=== PATIENT | female | born 1970 | race Caucasian/White ===

== ENCOUNTER 2017-08-29 08:11 | Outpatient (CLI) | payer BC ==
--- NOTE | 2017-08-29 10:59 | MRI ---
MRI OF THE LUMBAR SPINE WITHOUT CONTRAST: INDICATION: Lumbar radiculopathy; chronic low back pain for 5 years which radiates down both legs for 2 years. TECHNIQUE: Multiplanar, multisequence MR images were obtained of the lumbar spine without IV contrast. FINDINGS: There is a T2 hyperintense, T1 hypointense cyst involving the right mid kidney measuring 1.4 cm. The remaining visualized retroperitoneum and paravertebral soft tissues are normal-appearing. Bone marrow signal intensity appears within normal limits. There is a 1 x 1 cm synovial cyst projecting off the anterior medial margin of the left L5-S1 facet j oint at L5-S1 inducing moderate to severe narrowing of the subarticular left lateral recess with cont act and impingement of the traversing left S1 nerve root. There is a broad-based disk bulge and face t hypertrophy inducing mild left neural foraminal narrowing. At L4-5, there is mild facet joint degenerative change and broad-based bulge without appreciable cent ral canal or neural foraminal narrowing. At L3-4, there is no appreciable central canal or neural foraminal narrowing. At L2-3, there is no appreciable central canal or neural foraminal narrowing. At L1-2, there is no appreciable central canal or neural foraminal narrowing. At T12-L1, there is no appreciable central canal or neural foraminal narrowing. IMPRESSION: 1. Anterior medial projecting synovial cyst off the left L5-S1 facet joint complex induces moderate to severe left lateral recess narrowing with impingement of the traversing left S1 nerve root. 2. Mild multilevel spondylosis of the lumbar spine. POS: LAUREL
== END 2017-08-29 08:12 | disposition home or self-care (01) ==
LOC: SCSMRI 08:11
PROVIDERS: ATTEND Family Medicine
DX: M47.26 Other spondylosis with radiculopathy, lumbar region (principal); M71.38 Other bursal cyst, other site
CPT/HCPCS: 72148

== ENCOUNTER 2018-08-01 08:11 | Outpatient (CLI) | payer BC ==
--- NOTE | 2018-08-02 15:32 | MMO ---
Bilateral MAMMO Bilat Screen [facility]. CLINICAL HISTORY: Patient is 48 years old and is seen for screening. The patient has no family history of breast cancer. The patient has no personal history of cancer. VIEWS: The views performed were: bilateral craniocaudal with tomosynthesis and bilateral mediolateral oblique with tomosynthesis. FILMS COMPARED: The present examination has been compared to prior imaging studies performed at [facility] on 08/24/2011, 06/25/2013, 06/26/2014 and 01/13/2017. MAMMOGRAM FINDINGS: There are scattered fibroglandular densities. Finding 1: There is a stable focal asymmetry seen in the right breast. Finding 2: There are no suspicious masses, calcifications or areas of architectural distortion. IMPRESSION: ALL ABOVE FINDINGS ARE BENIGN. A ROUTINE FOLLOW-UP MAMMOGRAM IN 1 YEAR IS RECOMMENDED. THE RESULTS OF THIS EXAM WERE SENT TO THE PATIENT. ACR BI-RADS Category 2 - Benign finding MAMMOGRAPHY NOTE: 1. A negative mammogram report should not delay a biopsy if a dominant of clinically suspicious mass is present. 2. Approximately 10% to 15% of breast cancers are not detected by mammography. 3. Adenosis and dense breasts may obscure an underlying neoplasm.
== END 2018-08-01 08:12 | disposition home or self-care (01) ==
LOC: BICMAMMO 08:11
PROVIDERS: ATTEND Family Medicine
DX: Z12.31 Encounter for screening mammogram for malignant neoplasm of breast (principal)
CPT/HCPCS: 77063; 77067